=== PATIENT | female | born 2005 | race Caucasian/White ===

== ENCOUNTER 2024-05-13 08:16 | Emergency (ER) | payer MEDICAID ==
[~2024-05-13] VITALS: Ht 149.9 cm; Wt 51.7 kg
[2024-05-13 08:18] VITALS: BP 110/72; PULSE 83; RESP 17; TEMP 97.3; O2SAT 97
[2024-05-13] MEDS ORDERED: NITR100C7 PO (08:49)
[2024-05-13 09:00] VITALS: BP 110/72; PULSE 83; RESP 17; TEMP 97.3; O2SAT 97
== END 2024-05-13 09:00 | disposition home or self-care (01) ==
LOC: MED 08:16
DX: O23.42 Unspecified infection of urinary tract in pregnancy, second trimester (principal); O36.8120 Decreased fetal movements, second trimester, not applicable or unspecified; N39.0 Urinary tract infection, site not specified; Z3A.16 16 weeks gestation of pregnancy
CPT/HCPCS: 81002; 81025; 99283